=== PATIENT | female | born 1945 | race Caucasian/White ===

== ENCOUNTER → 2016-06-01 | Outpatient (CLI) | payer OTHER ==
[~2016-06-01] MED LIST: AMARYL1 MG PO; AMLODIPINE BESYL5 MG PO; BACTRIM DS TAB1 EACH PO; BENICAR40 MG PO; CEFTIN 250 MG250 MG PO; CLEOCIN HCL300 MG PO; D-20002000 UNIT PO; DIABETA 1.25M1.25 M1 PO; ENALAPRIL MALEA20 MG PO; FUROSEMIDE 20 M20 M1 PO; GLUCOPHAGE1000 MG PO; HYDROCHLOROTHIA25 M2 PO; MULTIVITAMINS1 EAC7 PO; NASONEX17 GM NASAL; POTASSIUM20 PO; PREDNISONE 10 M10 MG; SONATA5 M1 PO; VITAMIN C120 GM PO; VITAMIN D400 UNI1 PO; VITAMINC500 PO; ZYRTEC 10 MG TA10 MG PO
== END ==
LOC: RAD 01:14
DX: Z12.31 Encounter for screening mammogram for malignant neoplasm of breast (principal)

== ENCOUNTER → 2018-05-02 | Outpatient (CLI) | payer OTHER, MEDICARE | LOC: RAD 13:58 | DX: Z12.31 Encounter for screening mammogram for malignant neoplasm of breast (principal) ==

== ENCOUNTER → 2019-05-09 | Outpatient (CLI) | payer OTHER, MEDICARE | LOC: RAD 10:34 | DX: Z12.31 Encounter for screening mammogram for malignant neoplasm of breast (principal) ==